=== PATIENT | female | born 1985 | race Caucasian/White ===

== ENCOUNTER → 2019-06-29 12:44 | Outpatient (BNVA) | payer OTHER, SELFPAY | PROVIDERS: Family Provider Nurse Practitioner; PCP Nurse Practitioner; Visit Provider Nurse Practitioner Psychiatric/Mental Health | DX: F33.2 Major depressive disorder, recurrent severe without psychotic features (principal); F43.12 Post-traumatic stress disorder, chronic; F41.1 Generalized anxiety disorder; F60.89 Other specific personality disorders | CPT/HCPCS: 99213 ==